=== PATIENT | female | born 1940 | race Caucasian/White ===

== ENCOUNTER 2018-08-11 10:01 | Inpatient (IN) ==
--- NOTE | 2018-08-11 10:14 | Emergency Department Note ---
Disposition Clinical Impression: Fracture of humerus, proximal, left, closed Qualifiers: Encounter type: initial encounter Fracture alignment: displaced Disposition: Admitted As Inpatient Forms: ED Satisfaction Letter General Adult HPI - General Chief complaint: ED Extremity Injury, Upper Stated complaint: FAll/left shoulder pain Time Seen by Provider: 08/11/18 10:09 Source: patient, family Limitations: no limitations - History of Present Illness Pain Scale: 10 - Related Data Home Medications Medication Instructions Recorded Confirmed ALPRAZolam [Xanax 0.5 MG Tablet] 0.5 mg PO BID PRN 03/18/17 03/18/17 Cholecalciferol (Vitamin D3) 2,000 unit PO DAILY 03/18/17 03/18/17 [Vitamin D] Ferrous Gluconate 324 mg PO DAILY 03/18/17 03/18/17 Megestrol Acetate [Megace] 40 mg PO DAILY 03/18/17 03/18/17 Pantoprazole Sodium [Protonix] 40 mg PO DAILY 03/18/17 03/18/17 Pentosan Polysulfate Sodium 100 mg PO TID 03/18/17 03/18/17 [Elmiron] Potassium Chloride [Klor-Con 10] 10 meq PO DAILY 03/18/17 03/18/17 amLODIPine [Norvasc] 5 mg PO DAILY 03/18/17 03/18/17 Previous Rx's Medication Instructions Recorded Omeprazole 20 mg PO DAILY 14 Days #14 05/08/18 tab.rap. Allergies Allergy/AdvReac Type Severity Reaction Status Date / Time Sulfa (Sulfonamide Allergy Rash Verified 08/11/18 10:07 Antibiotics) Past Medical History - Past Medical History Medical history: Reports: GERD, hypertension Surgical history: Reports: breast surgery, hysterectomy Psychiatric history: Reports: anxiety - Social History Smoking Status: Never smoker Smokeless Tobacco Status: No Alcohol use: Reports: none Drug use: Reports: none Physical Exam - General Limitations: no limitations General appearance: alert, in no apparent distress Course Vital Signs Temperature 98.4 F 08/11/18 10:02 Pulse Rate 94 08/11/18 10:02 Respiratory Rate 16 08/11/18 10:02 Blood Pressure 122/68 08/11/18 10:02 O2 Sat by Pulse Oximetry 100 08/11/18 10:02 Temperature 98.4 F 08/11/18 10:02 Pulse Rate 94 08/11/18 10:02 Respiratory Rate 16 08/11/18 10:02 Blood Pressure 122/68 08/11/18 10:02 O2 Sat by Pulse Oximetry 100 08/11/18 10:02 Oxygen Delivery Oxygen Delivery Room Air Medical Decision Making - MDM Narrative Medical decision making narrative: I consulted with Dr. Bronson with orthopedic surgery. He would like the patient admitted to the hospitalist. Patient does have some inferior subluxation of the proximal humerus due to this fall and fracture. He feels this is a surgical condition. Family and patient were updated. We will admit to hospitalist. - Medical Records Medical records reviewed: Yes I reviewed the patient's medical records. - Lab Data Lab results reviewed: Yes I reviewed the patient's lab results. - Radiology Data Radiology results reviewed: Yes I reviewed the patient's radiology results. Attestation Statement - Attestation Attestation: I examined this patient and my medical decision-making was reviewed with the Resident Physician. I agree with the documented findings, disposition and treatment plan as described except to the extent set forth below. 77-year-old female presents to the emergency room for a fall. Patient fell 2 days ago into the refrigerator freezer injuring her left shoulder. She is complaining of pain isolated to the left shoulder. Decreased range of motion secondary to pain. No other injuries. No head or neck injuries. No LOC. We will do a plain film of the left shoulder.
--- NOTE | 2018-08-11 10:17 | Emergency Department Note ---
Disposition Clinical Impression: Fracture of humerus, proximal, left, closed Qualifiers: Encounter type: initial encounter Fracture morphology: other fracture Fracture alignment: displaced Qualified Code(s): S42.292A - Other displaced fracture of upper end of left humerus, initial encounter for closed fracture Disposition: Admitted As Inpatient Condition: Fair Time of Disposition: 11:56 General Adult HPI - General Chief complaint: ED Extremity Injury, Upper Stated complaint: FAll/left shoulder pain Time Seen by Provider: 08/11/18 10:09 Source: patient, family Limitations: no limitations Nursing Notes Reviewed: Yes Vital Signs Reviewed: Yes - History of Present Illness HPI Narrative: 77 yo female presents from home with daughter bedside for evaluation of left shoulder pain. Patient fell 2 days ago. She describes opening the door to her refrigerator in her feet slipping from beneath her. She hit the left shoulder on the frame of the refrigerator door. She did not hit her head, did not lose consciousness. She has no other injuries or concerns. She takes ibuprofen at home for pain control in her symptoms are not improving. PMH: Hypertension, hyperlipidemia, IBS, Anticoagulant: None Antiplatelet: None ROS: Positive: As above Negative: Headache, change in vision, neck pain, confusion, back pain, other extremity injury, chest pain, shortness of breath, cough, fever, chills, nausea, vomiting, change in bowel or bladder habits. Pain Scale: 10 - Related Data Home Medications Medication Instructions Recorded Confirmed ALPRAZolam [Xanax 0.5 MG Tablet] 0.5 mg PO HS 03/18/17 08/11/18 Cholecalciferol (Vitamin D3) 2,000 unit PO DAILY 03/18/17 08/11/18 [Vitamin D] Ferrous Gluconate 324 mg PO DAILY 03/18/17 08/11/18 Pentosan Polysulfate Sodium 100 mg PO TID 03/18/17 08/11/18 [Elmiron] Potassium Chloride [Klor-Con 10] 10 meq PO DAILY 03/18/17 08/11/18 Amlodipine Besylate 10 mg PO DAILY 08/11/18 08/11/18 Losartan Potassium 50 mg PO DAILY PRN 08/11/18 08/11/18 Metoprolol Succinate [Toprol Xl] 50 mg PO BID 08/11/18 08/11/18 raNITIdine HCl [Zantac] 150 mg PO DAILY 08/11/18 08/11/18 Allergies Allergy/AdvReac Type Severity Reaction Status Date / Time Sulfa (Sulfonamide Allergy Rash Verified 08/11/18 10:07 Antibiotics) All systems ED: reviewed and negative except as stated. Review of Systems: As Per HPI Past Medical History - Past Medical History Medical history: Reports: GERD, hypertension Surgical history: Reports: breast surgery, hysterectomy Psychiatric history: Reports: anxiety - Social History Smoking Status: Never smoker Smokeless Tobacco Status: No Alcohol use: Reports: none Drug use: Reports: none Physical Exam Vital Signs Reviewed General: Patient is alert, oriented, and in no acute distress. She appears frail otherwise age appropriate. Head: atraumatic, normocephalic Eye: normal appearance, no scleral icterus, no conjunctival injection ENT: mucous membranes moist, normal external ear exam Neck: normal inspection, trachea midline, full ROM Chest: normal inspection, symmetric chest rise Respiratory: Good respiratory effort. Bilateral breath sounds are clear without wheezing, crackles, or rhonchi. Cardiovascular: Regular rate and rhythm. No clicks, rubs, gallops, or murmors. Normal heart sounds. Bilateral radial pulses 2/4 and equal. Abdomen: Bowel sounds present normoactive. Abdomen is soft, nondistended, and nontender. No guarding or rebound. No organomegaly noted. Musculoskeletal: Spontaneously moving all extremities. Pain to active and passive left shoulder abduction with pain palpation over left supraspinatus. Skin: warm, dry, intact. Neuro: GCS 15. No focal neurologic deficits observed. Psych: Patient's affect is appropriate for situation. - General Limitations: no limitations General appearance: alert, in no apparent distress Course Course Narrative: EKG dated 08/11/20 1011:29 interpreted as sinus rhythm with a rate of 69. NC 145, QS A3, QTc 412. LVH. Nonspecific ST-T changes. Compared to previous dated 05/08/2010 showing no acute ischemic changes in comparison. Concern for proximal left humerus fracture which is comminuted and displaced. Discussed this with on-call orthopedics, Dr. Arrieta. He agrees is a surgical problem and will be seeing the patient as consult with admission to the hospitalist. Discussed the above with the admitting hospitalist. Preop labs have not returned. Patient's been placed in sling. She is otherwise comfortable. Shoulder X-Ray 08/11/18 10:12 IMPRESSION: Comminuted and mildly displaced proximal left humerus fracture. D/ / 08/11/2018 10:54:39 Jim Ba MD / [facility] Interpreting Provider: Jim Ba MD Vital Signs Temperature 98.4 F 08/11/18 10:02 Pulse Rate 94 08/11/18 10:02 Respiratory Rate 16 08/11/18 10:02 Blood Pressure 122/68 08/11/18 10:02 O2 Sat by Pulse Oximetry 100 08/11/18 10:02 Temperature 98.4 F 08/11/18 10:02 Pulse Rate 94 08/11/18 10:02 Respiratory Rate 16 08/11/18 10:02 Blood Pressure 122/68 08/11/18 10:02 O2 Sat by Pulse Oximetry 100 08/11/18 10:02 Oxygen Delivery Oxygen Delivery Room Air Medical Decision Making - Lab Data Result diagrams: 08/11/18 11:19 08/11/18 11:19 Lab Results 08/11/18 08/11/18 08/11/18 Range/Units 11:19 11:19 11:19 WBC 7.7 (4.3-11.1) K/mcL RBC 3.16 L (3.82-4.97) M/mcL Hgb 9.5 L (11.5-15.4) g/dL Hct 29.3 L (35.3-44.9) % MCV 92.7 (83.0-100.0) fL MCH 30.1 (28.0-33.3) pg MCHC 32.4 (31.6-35.5) g/dL RDW 14.6 H (11.5-14.5) % Plt Count 183 (140-400) K/mcL MPV 9.8 (9.4-12.4) fL Immature Gran % 0.4 (0-4) % Seg Neutrophils % 76.7 % Lymphocytes % 10.9 % Monocytes % 11.4 % Eosinophils % 0.3 % Basophils % 0.3 % Neutrophils # 5.9 (1.6-8.9) K/mcL Lymphocytes # 0.8 (0.6-4.6) K/mcL Monocytes # 0.9 (0.0-1.3) K/mcL Eosinophils # 0.0 (0.0-0.6) K/mcL Basophils # 0.0 (0.0-0.2) K/mcL PT 12.9 H (9.4-12.1) Seconds INR 1.1 APTT 29.1 (26.0-36.0) Seconds Sodium 140 (136-145) mEq/L Potassium 3.8 (3.5-5.1) mEq/L Chloride 106 (98-107) mEq/L Carbon Dioxide 27 (23-29) mEq/L BUN 22 (8-23) mg/dL Creatinine 1.02 (0.60-1.20) mg/dL Est GFR ( Amer) > 60 (> 60) Est GFR (Non-Af Amer) 52 L (> 60) BUN/Creatinine Ratio 22 (6-26) Glucose 105 (70-105) mg/dL Calculated Osmolality 294 (280-300) Calcium 10.5 H (8.6-10.3) mg/dL
--- NOTE | 2018-08-11 11:21 | Orthopedic Consult Note ---
Date of Encounter: 08/11/18 Time of Encounter: 13:00 Assessment and Plan (1) Fracture of humerus, proximal, left, closed Current Visit: Yes Status: Acute Plan for OR 08/12 with NPO after midnight. Plan: I reviewed xrays with the patient. We discussed conservative and surgical management. Our recommendations would be to proceed with a Left Reverse TSR to maximize recovery and independence using left arm group home. Patient agreeable to this plan. Consent reviewed, signed by patient. All questions were addressed. Plan for surgery 08/12 with . I have consent in surgery. CHG bath tonight and in AM, NPO after midnight. foot pumps needed Pain control labs ordered, pre-op work up. Qualifiers: Encounter type: initial encounter Fracture morphology: other fracture Fracture alignment: displaced Qualified Code(s): S42.292A - Other displaced fracture of upper end of left humerus, initial encounter for closed fracture History of Present Illness Chief complaint: Fall, left shoulder pain HPI: Ms. Brady is a 77 year old female, presented to ED for Left shoulder pain, status post a fall 2 days ago. She has lost function of her shoulder secondary to pain. She denies LOC, SOB, BALLARD, dizziness or chest pain. Fall is a mechanical fall, and she hit her shoulder on her refridgerator and fell to the floor. She admits to pain 10/10 to left shoulder with bruising and lack of mobility. Denies N/T, radiation of pain or neck pain. No hx of trauma, falls or shoulder problems. Exam: A&O x 3, with her daughter in law. Left shoulder: Ecchymosis to entire left arm, swelling noted to shoulder, no erythema or obvious abrasions Tenderness to anterior shoulder, skin warm to touch. ROm to hand and elbow intact. NV intact distally. Plan: I reviewed xrays with the patient. We discussed conservative and surgical management. Our recommendations would be to proceed with a Left Reverse TSR to maximize recovery and independence using left arm meterman. Patient agreeable to this plan. Consent reviewed, signed by patient. All questions were addressed. Plan for surgery 08/12 with . I have consent in surgery. CHG bath tonight and in AM, NPO after midnight. foot pumps needed Pain control labs ordered, pre-op work up. Past Med Surg Social Fam HX - Past Medical History Medical history: GERD, hypertension Additional medical history: chronic back pain Psychiatric history: anxiety - Past Surgical History Surgical History: breast surgery, hysterectomy Additional surgical history: breast bx, x2 repair vaginal prolapse, back surgery - Social History Smoking Status: Never smoker Smokeless Tobacco Status: No Alcohol use: none Drug use: none Medications and Allergies Cholecalciferol (Vitamin D3) [Vitamin D] 2,000 unit PO DAILY 03/18/17 [History] Pentosan Polysulfate Sodium [Elmiron] 100 mg PO TID 03/18/17 [History] Potassium Chloride [Klor-Con 10] 10 meq PO DAILY 03/18/17 [History] RX: ALPRAZolam [Xanax 0.5 MG Tablet] 0.5 mg PO HS 03/18/17 [History] RX: Ferrous Gluconate 324 mg PO DAILY 03/18/17 [History] Bacillus Coagulans [Digestive Advantage] 1 each PO DAILY 08/11/18 [History] Losartan Potassium 50 mg PO DAILY PRN 08/11/18 [History] Metoprolol Succinate [Toprol Xl] 50 mg PO BID 08/11/18 [History] RX: Amlodipine Besylate 10 mg PO DAILY 08/11/18 [History] raNITIdine HCl [Zantac] 150 mg PO DAILY 08/11/18 [History] Allergy/AdvReac Type Severity Reaction Status Date / Time Sulfa (Sulfonamide Allergy Rash Verified 08/11/18 10:07 Antibiotics) All Systems Reviewed: The remainder of the systems were reviewed and are negative Physical Exam - Constitutional Vitals: Temp Pulse Resp BP Pulse Ox 98.4 F 94 16 122/68 100 08/11/18 10:02 08/11/18 10:02 08/11/18 10:02 08/11/18 10:02 08/11/18 10:02 General appearance IM: A&O X 3, answers questions appropriately Results - Labs Result Diagrams: 08/11/18 11:19 08/11/18 11:19 Labs: All other labs normal. Consult Discharge Plan - Plan
[2018-08-11 11:32] LABS: Basophils % 0.3 %; Eosinophils % 0.3 %; Hematocrit 29.3 % (35.3-44.9); Hemoglobin 9.5 g/dL (11.5-15.4); Immature Granulocytes % 0.4 % (0-4); Lymphocytes # 0.8 K/mcL (0.6-4.6); Lymphocytes % 10.9 %; Mean Corpuscular HGB Conc 32.4 g/dL (31.6-35.5); Mean Corpuscular Hemoglobin 30.1 pg (28.0-33.3); Mean Corpuscular Volume 92.7 fL (83.0-100.0); Mean Platelet Volume 9.8 fL (9.4-12.4); Monocytes # 0.9 K/mcL (0.0-1.3); Monocytes % 11.4 %; Neutrophils # 5.9 K/mcL (1.6-8.9); Platelet Count 183 K/mcL (140-400); Red Blood Count 3.16 M/mcL (3.82-4.97); Red Cell Distribution Width 14.6 % (11.5-14.5); Segmented Neutrophils % 76.7 %
[2018-08-11 11:43] LABS: INR 1.1; Prothrombin Time 12.9 Seconds (9.4-12.1)
[2018-08-11 11:46] LABS: Activated Partial Thrombo Time 29.1 Seconds (26.0-36.0)
[2018-08-11 11:53] LABS: BUN/Creatinine Ratio 22 (6-26); Blood Urea Nitrogen 22 mg/dL (8-23); Calcium 10.5 mg/dL (8.6-10.3); Carbon Dioxide 27 mEq/L (23-29); Chloride 106 mEq/L (98-107); Glucose 105 mg/dL (70-105); Osmolality,Calculated 294 (280-300); Potassium 3.8 mEq/L (3.5-5.1); Sodium 140 mEq/L (136-145); eGFR For Non-African Americans 52 (> 60)
[2018-08-11] MEDS ORDERED: *HR* HYDROcodone/Acet 5/325 mg TABLET PO PRN (12:34)
[2018-08-11] MEDS ORDERED: Naloxone 0.4 MG/ML INJ IVP PRN (12:34)
--- NOTE | 2018-08-11 13:23 | Internal Med History&Physical ---
Date of Encounter: 08/11/18 Time of Encounter: 13:15 Internal Medicine - H&P: HPI Chief complaint: left shoulder fracture Admitted From: Home Plans for Post Hospital Care: Home History of present illness: Ms. Brady is a 77 year old female who has hypertension and a history of T12 compression fracture presenting emergency room for left shoulder pain. Patient stated that she fell 2 days ago and landed to the left shoulder. She developed shoulder pain after fall, 10 out of 10, sharp, constant, unable to use her shoul evens. But she refused continue due to holiday season. But over last 2 days she her pain did not improve, worsening with any movement. She denies loss of consciousness. In the emergency room x-ray shows Comminuted and mildly displaced proximal left humerus fracture. Orthopedic surgery was consulted and recommended surgery tomorrow. Vitas is stable lab was unremarkable. She had a kyphoplasty surgery 2 years ago tolerant well. Denies bleeding or clots. She has good functional capacity. Consider low risk for procedure Past Med Surg Social Fam HX - Past Medical History Medical history: GERD, hypertension Additional medical history: chronic back pain Psychiatric history: anxiety - Past Surgical History Surgical History: breast surgery, hysterectomy, orthopedic, other Additional surgical history: back sx x2 - Social History Smoking Status: Never smoker Smokeless Tobacco Status: No Alcohol use: none Drug use: none Internal Medicine - H&P: Meds Cholecalciferol (Vitamin D3) [Vitamin D] 2,000 unit PO DAILY 03/18/17 [History] Pentosan Polysulfate Sodium [Elmiron] 100 mg PO TID 03/18/17 [History] Potassium Chloride [Klor-Con 10] 10 meq PO DAILY 03/18/17 [History] RX: ALPRAZolam [Xanax 0.5 MG Tablet] 0.5 mg PO HS 03/18/17 [History] RX: Ferrous Gluconate 324 mg PO DAILY 03/18/17 [History] Bacillus Coagulans [Digestive Advantage] 1 each PO DAILY 08/11/18 [History] Losartan Potassium 50 mg PO DAILY PRN 08/11/18 [History] Metoprolol Succinate [Toprol Xl] 50 mg PO BID 08/11/18 [History] RX: Amlodipine Besylate 10 mg PO DAILY 08/11/18 [History] raNITIdine HCl [Zantac] 150 mg PO DAILY 08/11/18 [History] Allergy/AdvReac Type Severity Reaction Status Date / Time Sulfa (Sulfonamide Allergy Rash Verified 08/11/18 10:07 Antibiotics) All Systems PM: A 10-system review of systems was performed and is negative for pertinent findings except as documented above in the HPI. - Constitutional Vitals: Temp Pulse Resp BP Pulse Ox 98.3 F 73 16 159/72 99 08/11/18 12:46 08/11/18 12:46 08/11/18 12:46 08/11/18 12:46 08/11/18 12:46 General appearance: Present: A&O X 3, pleasant Exam: CONSTITUTIONAL: Patient appears as an age appropriate female well developed, in no acute distress. EYES Clear sclerae, bilateral pupils are equal, reactive to light and accommodation. Extraocular movements are intact RESPIRATORY: No accessory muscle use, bilateral clear to auscultation, no wheezing, no crackles/rales. CARDIOVASCULAR: Regular heart rate, normal S1 and S2, no murmurs GASTROINTESTINAL: bowel sounds present, soft, no tenderness. No hepatosplenome waqar. No bilateral CVA tenderness MUSCULOSKELETAL: Left shoulder has limited range of motion, no clubbing, no edema, no cyanosis. Bilateral peripheral pulses 2+ LYMPHATIC no lymphadenopathy in neck, groin and axilla bilaterally, no thyromegaly. NEUROLOGIC: CN II to XII are grossly intact, no focal neurological deficit. Deep tendon reflexes 2+ bilaterally. Normal light touch sensation to upper and lower extremity PSYCHIATRIC: Oriented x3, with good insight, mood is euthymic. No hallucinations or delusions. SKIN: Skin warm and dry, no rashes, no open wound. Internal Med - H&P Results - Labs CBC & Chem 7: 08/11/18 11:19 08/11/18 11:19 Labs: Short CBC 08/11/18 Range/Units 11:19 WBC 7.7 (4.3-11.1) K/mcL Hgb 9.5 L (11.5-15.4) g/dL Hct 29.3 L (35.3-44.9) % Plt Count 183 (140-400) K/mcL Neutrophils # 5.9 (1.6-8.9) K/mcL BMP 08/11/18 11:19 Sodium 140 Potassium 3.8 Chloride 106 Carbon Dioxide 27 BUN 22 Creatinine 1.02 Glucose 105 Calcium 10.5 H - Impressions ITS Impressions Shoulder X-Ray 08/11/18 10:12 IMPRESSION: Comminuted and mildly displaced proximal left humerus fracture. D/ / 08/11/2018 10:54:39 Jim Ba MD / [facility] Interpreting Provider: Jim Ba MD - Assessment and plan (1) Fracture of humerus, proximal, left, closed Current Visit: Yes Status: Acute Assessment and plan: Left shoulder fracture after mechanical fall. Orthopedic surgery was consulted and will have surgery intervention tomorrow Qualifiers: Encounter type: initial encounter Fracture morphology: other fracture Fracture alignment: displaced Qualified Code(s): S42.292A - Other displaced fracture of upper end of left humerus, initial encounter for closed fracture (2) Pre-op evaluation Current Visit: Yes Status: Acute Assessment and plan: Patient denies history of CAD CK D diabetes CHF history of stroke, she has good functional goals capacity able to climb 2 flights of stairs without any chest pain shortness of breath. Her RCRI score 0 patient is considered low cardiac risk for surgery, will check EKG UA (3) Hypertension Current Visit: Yes Status: Acute Assessment and plan: Continue metoprolol, amlodipine and losartan Qualifiers: Hypertension type: essential hypertension Qualified Code(s): I10 - Essential (primary) hypertension (4) GERD (gastroesophageal reflux disease) Current Visit: Yes Status: Chronic Assessment and plan: Continue ppi Qualifiers: Esophagitis presence: with esophagitis Qualified Code(s): K21.0 - Gastro- esophageal reflux disease with esophagitis (5) DVT prophylaxis Current Visit: Yes Status: Acute Assessment and plan: We will place SCDs before surgery - Time Spent With Patient Total time spent is greater than 50% in coordination of care (as documented) at patient's floor/unit and/or counseling patient: Greater than 35 minutes
[2018-08-11] MEDS: Pentosan Polysulfate Sodium [Elmiron] 100 MG) PO SCH ×2 (15:40→20:21)
[2018-08-11] MEDS: Acetaminophen 325 MG TABLET PO PRN ×2 (15:45→22:18)
--- NOTE | 2018-08-11 16:02 | Electrocardiograph Report ---
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
--- NOTE | 2018-08-11 16:24 | Anesthesia Evaluation PreOp ---
<Stephanie Ayers - Last Filed: 08/11/18 16:19> Date of Encounter: 08/11/18 Time of Encounter: 16:19 - Past History Planned Operation: L total shoulder Cardiac History: HTN Pulmonary History: Denies Any Significant HX TALENT REP History: Other (chronic back paint12 compression fx) Other Medical History: GERD Anesthesia History: No Prior Anesthetic Complications, Past Anesthesia (Hysterectomy, back sx) Alcohol Use: none Drug use: none Medications and Allergies ALPRAZolam [Xanax 0.5 MG Tablet] 0.5 mg PO HS 03/18/17 [History] Cholecalciferol (Vitamin D3) [Vitamin D] 2,000 unit PO DAILY 03/18/17 [History] Ferrous Gluconate 324 mg PO DAILY 03/18/17 [History] Pentosan Polysulfate Sodium [Elmiron] 100 mg PO TID 03/18/17 [History] Potassium Chloride [Klor-Con 10] 10 meq PO DAILY 03/18/17 [History] Amlodipine Besylate 10 mg PO DAILY 08/11/18 [History] Bacillus Coagulans [Digestive Advantage] 1 each PO DAILY 08/11/18 [History] Losartan Potassium 50 mg PO DAILY PRN 08/11/18 [History] Metoprolol Succinate [Toprol Xl] 50 mg PO BID 08/11/18 [History] raNITIdine HCl [Zantac] 150 mg PO DAILY 08/11/18 [History] Allergy/AdvReac Type Severity Reaction Status Date / Time Sulfa (Sulfonamide Allergy Rash Verified 08/11/18 10:07 Antibiotics) - Meds/Allergy Pre-op Review Medications Reviewed: Yes Allergies Reviewed: Yes Beta Blockers on Current Med List: Yes Anesthesia Results - Labs 08/11/18 11:19 08/11/18 11:19 - Imaging EKG: report reviewed (Sinus rhythm Left atrial enlargement Left ventricular hypertrophy Anterior Q waves, possibly due to LVH Electronically Signed On 08-11-2018 16:00:27 EST by Carmel Navas) Anesthesia Exam Vital Signs/O2 Sat, Most Current Temp Pulse Resp BP Pulse Ox 98.3 F 73 16 159/72 99 08/11/18 12:46 08/11/18 12:46 08/11/18 12:46 08/11/18 12:46 08/11/18 12:46 Height: 1.57 Weight: 42kg NPO (# of Hours): >8 Pain Scale: 0 Pain Scale Used: Numeric (1 - 10) - HEENT Pupil (Motor): Pupils equal, EOMI Mallampati: III Teeth: Normal Oral Opening: Greater than 3 - TALENT REP LOC: Oriented TALENT REP Motor: Normal RUE, Normal LUE, Normal RLE, Normal LLE, Normal Face TALENT REP Sensory: Normal: RUE, LUE, RLE, LLE, Face - Cardiac Rhythm: Regular - Pulmonary Breath Sounds: bilateral Clear Respiratory Effort: Symmetrical Anesthesia Assess/Plan ASA Score: 3 Level of consciousness: Cooperative Anesthetic Plan: General, Regional Nerve Block (L brachial plexus) Monitoring Plan: Standard Monitors Recovery Plan: PACU <Modesto Oseguera - Last Filed: 08/11/18 19:17> Date of Encounter: 08/11/18 - Past History Anesthesia History: Past Anesthesia, Problems (Post op N/V) Anesthesia Results - Labs 08/11/18 11:19 08/11/18 11:19 Anesthesia Exam - HEENT Pupil (Motor): Pupils equal, EOMI Mallampati: III Teeth: Normal Oral Opening: Less than or equal to 3 - TALENT REP LOC: Oriented TALENT REP Motor: Normal RUE, Normal LUE, Normal RLE, Normal LLE, Normal Face TALENT REP Sensory: Normal: RUE, LUE, RLE, LLE, Face - Cardiac Rhythm: Regular JVD: No Carotid Bruit: No - Pulmonary Breath Sounds: bilateral Clear Respiratory Effort: Symmetrical Anesthesia Assess/Plan ASA Score: 3 Level of consciousness: Cooperative Anesthetic Plan: General, Regional Nerve Block Regional Nerve Block Plan: Supraclavicular Autologous Blood: No Monitoring Plan: Standard Monitors Recovery Plan: PACU (Discussed GA, Brachaial Plexus Block, agrees to proceed)
[2018-08-11] MEDS: Metoprolol XL (24 HR) Succ 50 MG TAB.ER.24H PO SCH (20:21)
[2018-08-11] MEDS ORDERED: ALPRAZolam 0.5 MG TABLET PO SCH (21:00)
[2018-08-12 05:16] LABS: Basophils # 0.1 K/mcL (0.0-0.2); Basophils % 0.7 %; Eosinophils # 0.1 K/mcL (0.0-0.6); Eosinophils % 1.8 %; Hematocrit 32.3 % (35.3-44.9); Hemoglobin 10.2 g/dL (11.5-15.4); Immature Granulocytes % 0.4 % (0-4); Lymphocytes # 1.5 K/mcL (0.6-4.6); Lymphocytes % 20.1 %; Mean Corpuscular HGB Conc 31.6 g/dL (31.6-35.5); Mean Corpuscular Hemoglobin 29.9 pg (28.0-33.3); Mean Corpuscular Volume 94.7 fL (83.0-100.0); Mean Platelet Volume 9.8 fL (9.4-12.4); Monocytes # 0.9 K/mcL (0.0-1.3); Monocytes % 12.5 %; Neutrophils # 4.6 K/mcL (1.6-8.9); Platelet Count 201 K/mcL (140-400); Red Blood Count 3.41 M/mcL (3.82-4.97); Red Cell Distribution Width 14.6 % (11.5-14.5); Segmented Neutrophils % 64.5 %
[2018-08-12 05:27] LABS: BUN/Creatinine Ratio 24 (6-26); Blood Urea Nitrogen 21 mg/dL (8-23); Calcium 10.3 mg/dL (8.6-10.3); Carbon Dioxide 24 mEq/L (23-29); Chloride 109 mEq/L (98-107); Glucose 102 mg/dL (70-105); Osmolality,Calculated 297 (280-300); Sodium 142 mEq/L (136-145); eGFR For Non-African Americans > 60 (> 60)
--- NOTE | 2018-08-12 06:50 | Orthopedics Progress Note ---
Date of Encounter: 08/12/18 Time of Encounter: 06:49 Subjective Interval history: Patient seen this morning x-rays reviewed with the family discussed different treatment options patient significant pain recommendations reverse total shoulder replacement left We reviewed the risks and benefits as well as recovery. All questions were answered. The patient agreed to this treatment plan and acknowledged an understanding of the treatment plan as described. Objective Vital signs: Vital Signs Temp Pulse Resp BP Pulse Ox 08/12/18 04:58 97.6 F 63 16 166/75 98 08/11/18 23:29 98.9 F 70 16 129/69 96 08/11/18 21:12 98.6 F 68 18 114/67 96 08/11/18 12:46 98.3 F 73 16 159/72 99 08/11/18 11:59 66 18 139/56 08/11/18 10:02 98.4 F 94 16 122/68 100 Intake and Output 08/11/18 08/11/18 08/12/18 15:59 23:59 07:59 Intake Total 240 / 240 240 / 240 0 / 0 Output Total 50 / 50 0 / 0 Balance 240 / 240 190 / 190 0 / 0 Intake: Oral 240 / 240 240 / 240 0 / 0 Output: Urine 50 / 50 0 / 0 Other: Meal Breakfast Dinner Percent of Meal Consumed 50% 50% # Voids 3 1 1 Weight 42.638 kg 42.69 kg Patient Weight 08/12/18 23:59 Weight 42.69 kg - Labs CBC & BMP: 08/12/18 04:43 08/12/18 04:43 Labs: Abnormal lab results RBC 3.41 M/mcL (3.82-4.97) L 08/12/18 04:43 Hgb 10.2 g/dL (11.5-15.4) L 08/12/18 04:43 Hct 32.3 % (35.3-44.9) L 08/12/18 04:43 RDW 14.6 % (11.5-14.5) H 08/12/18 04:43 PT 12.9 Seconds (9.4-12.1) H 08/11/18 11:19 Chloride 109 mEq/L (98-107) H 08/12/18 04:43 Consult Discharge Plan - Plan Referrals: Liu Monreal MD [Primary Care Provider] -
[2018-08-12] MEDS ORDERED: Famotidine 20 MG TABLET PO SCH (07:30)
[2018-08-12] MEDS: Pentosan Polysulfate Sodium [Elmiron] 100 MG) PO SCH (07:43)
[2018-08-12 08:17] LABS: Bilirubin,Urine Negative (Negative); Blood,Urine Negative (Negative); Color,Urine Yellow (Yellow); Glucose,Urine (UA) Normal (Normal); Ketones,Urine Negative (Negative); Leukocyte Esterase,Urine Large (Negative); Nitrite,Urine Negative (Negative); Protein,Urine Negative (Neg-Trace); Urobilinogen,Urine Normal (Normal)
[2018-08-12 08:20] LABS: Bacteria,Urine Many per hpf (None-Few); Hyaline Casts,Urine None Seen per lpf (None-Few); RBC,Urine 0-3 per hpf (0-3); Squamous Epithelial Cell,Urine Moderate per lpf (None-Few); WBC,Urine 30-50 per hpf (0-3)
[2018-08-12 08:21] LABS: Clarity,Urine Slightly Hazy (Clear)
[2018-08-12] MEDS: Metoprolol XL (24 HR) Succ 50 MG TAB.ER.24H PO SCH ×2 (08:50→21:22)
[2018-08-12] MEDS ORDERED: Cholecalciferol (D-3) 1,000 UNIT TABLET PO SCH (09:00)
[2018-08-12] MEDS ORDERED: amLODIPine 5 MG TABLET PO SCH (09:00)
[2018-08-12] MEDS ORDERED: Ketorolac 15 MG/ML VIAL IVP ONE (09:03)
[2018-08-12] MEDS ORDERED: Ondansetron 4 MG/2 ML VIAL IVP PRN ×2 (09:10→15:41)
--- NOTE | 2018-08-12 11:14 | Event Note ---
Date of Encounter: 08/12/18
[2018-08-12] MEDS ORDERED: *HR* Propofol 200 MG/20 ML VIAL IVP ONE ×2 (12:44→12:56)
[2018-08-12] MEDS ORDERED: Lidocaine -MPF 2% 2 ML VIAL ONE (12:44)
[2018-08-12] MEDS ORDERED: *HR* Rocuronium Bromide 50 MG/5 ML VIAL ONE (12:44)
[2018-08-12] MEDS ORDERED: Dexamethasone 4 MG/ML VIAL ONE (12:44)
[2018-08-12] MEDS ORDERED: Ondansetron 4 MG/2 ML VIAL ONE (12:44)
[2018-08-12] MEDS ORDERED: *HR* FentaNYL (PF) 100 MCG/2 ML VIAL ONE (12:44)
[2018-08-12] MEDS ORDERED: *HR* Succinylcholine 200 MG/10 ML VIAL IVP ONE (12:44)
[2018-08-12] MEDS ORDERED: *HR* Midazolam HCl 2 MG/2 ML VIAL ONE (12:44)
--- NOTE | 2018-08-12 12:52 | Internal Med Progress Note ---
Hospitalist Progress Note - Encounter Date of Encounter: 08/12/18 Time of Encounter: 09:30 - Subjective Interval History: Patient continues to have right shoulder pain at site of fracture. Not much improvement with Tylenol. Patient reports that she gets nauseated with anesthesia and would prefer not using strong narcotic medications. Offered intravenous Tylenol/Toradol. Willing to try this. Scheduled for surgery later today. No chest pain or shortness of breath. No nausea or vomiting at this time. - Exam Vitals: Temp Pulse Resp BP Pulse Ox 98.2 F 66 18 160/74 98 08/12/18 10:04 08/12/18 12:35 08/12/18 12:35 08/12/18 12:35 08/12/18 12:35 Exam: General: Patient is alert, moderate distress, oriented x 3 ENT: Mucous membranes moist Respiratory: Good respiratory effort. Normal breath sounds. No wheezing or crackles. Cardiovascular: Regular rate and rhythm. s1 and s2 normal No clicks, rubs, gallops, or murmurs. No pedal edema Abdomen: Abdomen is soft, nontender. Bowel sounds are present Musculoskeletal: Tenderness in left shoulder Skin: warm, dry, intact. Neuro: Alert oriented x 3 normal cranial nerves, no focal deficits - Assessment and Plan (1) Fracture of humerus, proximal, left, closed Current Visit: Yes Status: Acute Assessment and Plan: Orthopedics evaluated patient and recommended to reverse total shoulder replacement. Scheduled for later today. Low to intermediate risk for cardiac complications from surgery. Will place patient on IV Tylenol to help with her pain. (2) Hypertension Current Visit: Yes Status: Chronic Assessment and Plan: Blood pressure is currently elevated. Likely due to pain. Continue metoprolol, losartan and amlodipine. We will continue to monitor blood pressure and adjust antihypertensive regimen accordingly. (3) GERD (gastroesophageal reflux disease) Current Visit: Yes Status: Chronic Assessment and Plan: Continue Pepcid (4) DVT prophylaxis Current Visit: Yes Status: Acute Assessment and Plan: Will place patient on subcutaneous Lovenox post procedure - Time Spent with Patient Total time spent is greater than 50% in coordination of care (as documented) at patient's floor/unit and/or counseling patient: Internal Medicine: Result - Labs CBC & Chem 7: 08/12/18 04:43 08/12/18 04:43 Labs: Short CBC 08/12/18 Range/Units 04:43 WBC 7.2 (4.3-11.1) K/mcL Hgb 10.2 L (11.5-15.4) g/dL Hct 32.3 L (35.3-44.9) % Plt Count 201 (140-400) K/mcL Neutrophils # 4.6 (1.6-8.9) K/mcL BMP 08/12/18 04:43 Sodium 142 Potassium 4.0 Chloride 109 H Carbon Dioxide 24 BUN 21 Creatinine 0.87 Glucose 102 Calcium 10.3 Urine 08/12/18 Range/Units 07:15 Urine Color Yellow (Yellow) Urine Clarity Slightly Hazy (Clear) Urine pH 7.0 (5.0-8.0) pH Units Ur Specific [place] 1.020 (1.010-1.025) Urine Protein Negative (Neg-Trace) mg/dL Urine Glucose (UA) Normal (Normal) mg/dL - ABG Interpretation ABG results: PT/INR, D-dimer PT 12.9 Seconds (9.4-12.1) H 08/11/18 11:19 - Impressions Impressions Shoulder X-Ray 08/11/18 10:12 IMPRESSION: Comminuted and mildly displaced proximal left humerus fracture. D/ / 08/11/2018 10:54:39 Jim Ba MD / [email or web address] Interpreting Provider: Jim Ba MD Consult Discharge Plan - Plan Referrals: Liu Monreal MD [Primary Care Provider] - (1) Fracture of humerus, proximal, left, closed Qualifiers: Encounter type: initial encounter Fracture morphology: other fracture Fracture alignment: displaced Qualified Code(s): S42.292A - Other displaced fracture of upper end of left humerus, initial encounter for closed fracture (2) Hypertension Qualifiers: Hypertension type: essential hypertension Qualified Code(s): I10 - Essential (primary) hypertension (3) GERD (gastroesophageal reflux disease) Qualifiers: Esophagitis presence: esophagitis presence not specified Qualified Code(s): K21.9 - Gastro-esophageal reflux disease without esophagitis
[2018-08-12] MEDS ORDERED: ROPIVACAINE HCL/PF 0.5% 30 ML VIAL ONE (12:55)
[2018-08-12] MEDS ORDERED: Ethanol\\Acetic Acid\\Na Ace\\Ben 1,000 ML IRRIG.SOLN IR ONE (13:08)
--- NOTE | 2018-08-12 13:16 | Anesthesia Procedures ---
Date of Encounter: 08/12/18 Time of Encounter: 13:08 Procedures: Anesthesia - Nerve Block Procedure Date: 08/12/18 Time: 13:08 Allergies/Adv Reactions: sulfa Surgical Procedure: left rev TSA Checklist: Correct Patient Identifier, Correct procedure, History checked Correct side: Left Blood Thinner: No Monitor Applied: EKG, BP, Pulse Oximetry Supplemental Oxygen via Nasal Cannula (L/min): 8 (FM) Indication: Post Op Analgesia Pre-op Neuro Deficits: No Block Type: Supraclavicular Catheter placed: No Sterile Technique: Yes Ultrasound used: Yes Anatomy identified: Yes Visual spread of Local: Yes Neuro Stimulation: No Blood on Needle Aspiration: No Smooth Injection of Local: Yes Pain with Injection of Local: No Prep: Chlorhexadine Needle: 22 x 50 mm Stimuplex Local: Ropivacaine, Other (decadron 8mg) Volume (cc): 30 Number of Attempts: 1 Complications: None/effective block Vitals: Vital Signs/O2 Sat/Glucose, Most Recent Temp Pulse Resp BP Pulse Ox 98.2 F 60 16 141/66 100 08/12/18 10:04 08/12/18 13:09 08/12/18 13:09 08/12/18 13:09 08/12/18 13:09 Blood Glucose* 97 Comments: propofol 20mg
[2018-08-12] MEDS ORDERED: Tranexamic Acid 1,000 MG/10 ML VIAL ONE (13:24)
[2018-08-12] MEDS ORDERED: EPHEDrine 50 MG/ML VIAL ONE (13:37)
--- NOTE | 2018-08-12 14:25 | Orthopedic Operative Note ---
Date of procedure: 08/12/18 Pre-op diagnosis: Displaced left proximal humerus fracture Post-op diagnosis: same Procedure: Procedure: Reverse total shoulder replacment, left Estimated blood loss: 100 cc Hardware: Metal and polyethylene replacement Arthrex glenoid baseplate: 24, +4, 30 mm screw , 4 locking 5.5 screw, glenosphere: 42+4 , humeral stem: 11 , 3 constrained poly insert: 2 Arthrex cerclage fiber tapes Procedural Notes: Displaced proximal humerus fracture Operative procedure: The patient was brought to the operating room and placed on the operating room table. After general anesthesia was administered the operative shoulder was examined. Findings were noted. The patient was placed in the modified beachchair position. All pressure points were padded appropriately. And the head was stabilized in the neutral position. The operative extremity was prepped and draped in the sterile surgical fashion. The patient received IV antibiotics prior to skin incision. A standard deltopectoral approach was made to the operative shoulder. Incision was made to the skin and subcutaneous tissue,hemo stasis was obtained with Bovie cautery. Using careful blunt dissection the cephalic vein was identified and mobilized medially. The deltopectoral interval was developed and the clavipectoral fascia was incised. The lesser tuberosity was identified and tagged with 2 #2 fiber loops and 2 #2 FiberWire suture. The greater tuberosity was identified and tagged with 2 #5 FiberWire suture. And to cerclage fiber tapes The humeral head was removed. Anterior and posterior Bankart retractors were placed to expose the glenoid. The glenoid guide was seated and the centering hole was made. It was reamed with the appropriate reamer. The baseplate 24, +4, 30 mm screw was seated and secured with 4 locking 5.5 screw. The baseplate was irrigated and dried and the appropriate 42+4 sphere was seated and secured with the Garcia taper and central locking screw. The Garcia taper was tested and found to be secure the humerus was redislocated and prepared with the diaphyseal reamers, followed by a broaching process up to the appropriate size 11 in 20 degrees of retro-version. Trial reduction found the shoulder to be relocatable. Trial components were removed The real humeral component was impacted in place in 20 degrees of retroversion. Trial reduction found the shoulder to be relocatable and stable with the appropriate 3 constrained inserts. Trial component was removed and the real implants was seated and secured the shoulder was reduced. The shoulder had excellent motion and excellent stability and no evidence of dislocation. The greater tuberosity was reduced and repaired to the implant with 2 cerclage fiber tapes the lesser tuberosity was reduced and repaired to this construct with #2 fiberwire sutures. The deep tissue was irrigated with pulse irrigation. The deltopectoral interval was closed with a running #1 PDS suture, subcutaneous tissue was irrigated and closed with 0 PDS suture, the skin was closed with skin chio The patient was placed in a sterile dressing, abduction brace and extubated. The patient was then transferred to the recovery room in stable condition. Anesthesia: GETA Surgeon: Orville Bronson Was there an sourcing assistant present: No Estimated blood loss (cc): 100 Condition: stable Disposition: PACU
[2018-08-12] MEDS ORDERED: Ringers Solution, Lactated 1,000 ML ONE (15:03)
[2018-08-12 15:17] LABS: Hematocrit 28.8 % (35.3-44.9); Hemoglobin 9.4 g/dL (11.5-15.4)
[2018-08-12] MEDS ORDERED: Ringers Solution, Lactated 1,000 ML IVC SCH (15:41)
[2018-08-12] MEDS ORDERED: *HR* HYDROcodone/Acet 5/325 mg TABLET PO PRN (15:41)
[2018-08-12] MEDS ORDERED: Temazepam 15 MG CAPSULE PO PRN (15:41)
[2018-08-12] MEDS ORDERED: Sennosides 8.6 MG TABLET PO PRN (15:41)
[2018-08-12] MEDS ORDERED: Naloxone 0.4 MG/ML INJ IVP PRN ×2 (15:41)
[2018-08-12] MEDS ORDERED: MOM Conc 10 ML UD.LIQ PO PRN (15:41)
--- NOTE | 2018-08-12 16:12 | Anesthesia Evaluation Post Op ---
Date of Encounter: 08/12/18 Time of Encounter: 15:00 - Discharge PostOp Status: Transfer Patient to floor (Patient's vital signs have been reviewed. Patient is stable postoperatively and has adequately recovered from anesthesia. Patient is determined to have stable airway patency and respiratory function including respiratory rate and oxygen saturation. Patient has a stable heart rate, blood pressure and adequate hydration. Patients mental status is acceptable. Patients temperature is appropriate. Pain and nausea are adequately controlled.)
[2018-08-12] MEDS ORDERED: ALPRAZolam 0.5 MG TABLET PO SCH (21:00)
[2018-08-12] MEDS: Patient Taking Own Medication 1 EACH PO SCH (21:24)
[2018-08-13] MEDS: Acetaminophen IV 1,000 MG/100 ML INFUS..BTL IVPB PRN ×2 (04:01→13:41)
[2018-08-13 05:59] LABS: Hematocrit 28.6 % (35.3-44.9); Hemoglobin 9.5 g/dL (11.5-15.4)
[2018-08-13] MEDS ORDERED: Famotidine 20 MG TABLET PO SCH (07:30)
[2018-08-13] MEDS: Metoprolol XL (24 HR) Succ 50 MG TAB.ER.24H PO SCH (08:23)
[2018-08-13] MEDS: Patient Taking Own Medication 1 EACH PO SCH (08:23)
[2018-08-13] MEDS ORDERED: Ketorolac 15 MG/ML VIAL IVP ONE (08:39)
[2018-08-13] MEDS ORDERED: Cholecalciferol (D-3) 1,000 UNIT TABLET PO SCH (09:00)
[2018-08-13] MEDS ORDERED: amLODIPine 5 MG TABLET PO SCH (09:00)
[2018-08-13] MEDS ORDERED: Cefdinir 300 MG CAPSULE PO SCH (09:00)
[2018-08-13] MEDS ORDERED: *HR* Enoxaparin 40 MG/0.4 ML SYRINGE SQ SCH (12:45)
--- NOTE | 2018-08-13 13:58 | Discharge Summary ---
- NOTES TO OUTPATIENT PROVIDER Notes to Outpatient Provider: Patient with history of essential hypertension and gastroesophageal reflux disease was hospitalized here after a fall resulting in left humerus fracture. She was evaluated by orthopedics and recommended reverse total shoulder replacement. She underwent this procedure yesterday and is doing well postoperatively. She has been evaluated by physical therapy and recommended outpatient PT. She will be discharged home today and will follow up with orthopedics after discharge for further management. Orders not resulted at time of discharge: Pending orders 08/12/18 07:15 Culture,Urine [RM] Stat 08/12/18 13:04 US anesthesia pain block [US] Routine 08/14/18 04:00 Hemoglobin and Hematocrit [HEME] AM 0400 Date of Encounter: 08/13/18 Time of Encounter: 09:00 - Discharge Diagnosis (1) Fracture of humerus, proximal, left, closed Priority: Primary Status: Acute Qualifiers: Encounter type: initial encounter Fracture morphology: other fracture Fracture alignment: displaced Qualified Code(s): S42.292A - Other displaced fracture of upper end of left humerus, initial encounter for closed fracture (2) Hypertension Priority: Secondary Status: Chronic Qualifiers: Hypertension type: essential hypertension Qualified Code(s): I10 - Essential (primary) hypertension (3) GERD (gastroesophageal reflux disease) Priority: Secondary Status: Chronic Qualifiers: Esophagitis presence: esophagitis presence not specified Qualified Code(s): K21.9 - Gastro-esophageal reflux disease without esophagitis (4) DVT prophylaxis Priority: Secondary Status: Acute Hospital course: Ms. Brady is a 77 year old female Patient with history of essential hypertension and gastroesophageal reflux disease was hospitalized here after a fall resulting in left humerus fracture. She was evaluated by orthopedics and recommended reverse total shoulder replacement. She underwent this procedure yesterday and is doing well postoperatively. She has been evaluated by physical therapy and recommended outpatient PT. She will be discharged home today and will follow up with orthopedics after discharge for further management. Discharge discussed with: patient, nurse - Time Spent with Patient Total time spent providing and/or coordinating discharge services: Greater than 30 minutes (32 min) - Discharge Medications Prescriptions: Acetaminophen w/Cod 300-30 mg [Tylenol w/Codeine #3] 1 each PO Q8HR PRN 7 Days #20 tablet PRN Reason: Moderate Pain RX: Cefdinir [Omnicef] 300 mg PO BID #12 capsule RX: Tramadol HCl [Ultram] 50 mg PO Q6H PRN 5 Days #20 tab PRN Reason: Severe Pain Home Medications: RX: ALPRAZolam [Xanax 0.5 MG Tablet] 0.5 mg PO HS 03/18/17 [History] RX: Cholecalciferol (Vitamin D3) [Vitamin D3] 2,000 unit PO DAILY 03/18/17 [History] RX: Ferrous Gluconate 324 mg PO DAILY 03/18/17 [History] RX: Pentosan Polysulfate Sodium [Elmiron] 100 mg PO TID 03/18/17 [History] RX: Potassium Chloride [Klor-Con 10] 10 meq PO DAILY 03/18/17 [History] RX: Amlodipine Besylate 10 mg PO DAILY 08/11/18 [History] RX: Bacillus Coagulans [Digestive Advantage] 1 each PO DAILY 08/11/18 [History] RX: Losartan Potassium 50 mg PO DAILY PRN 08/11/18 [History] RX: Metoprolol Succinate [Toprol Xl] 50 mg PO BID 08/11/18 [History] RX: raNITIdine HCl [Zantac] 150 mg PO DAILY 08/11/18 [History] Acetaminophen w/Cod 300-30 mg [Tylenol w/Codeine #3] 1 each PO Q8HR PRN 7 Days #20 tablet 08/13/18 [Rx] RX: Cefdinir [Omnicef] 300 mg PO BID #12 capsule 08/13/18 [Rx] RX: Tramadol HCl [Ultram] 50 mg PO Q6H PRN 5 Days #20 tab 08/13/18 [Rx] Allergies/Adverse Reactions: Allergy/AdvReac Type Severity Reaction Status Date / Time Sulfa (Sulfonamide Allergy Rash Verified 08/11/18 10:07 Antibiotics) Date of admission: 08/11/18 11:43 Primary care physician: Liu Monreal MD Consults: 08/11/18 12:54 Consult to Pastoral Services [CONS] Routine Comment: Consult to [place] [CONS] Routine Reason for SW Consult: rehab on d/c 08/12/18 15:41 Consult to Occupational Therapy [CONS] Routine Comment: post shoulder surgery Reason for Consult: post shoulder surgery Does patient have active BEDREST order?: No Is patient medically & hemodynamically stable?: Yes Consult to Physical Therapy [CONS] Routine Comment: post shoulder surgery Reason for Consult: post shoulder surgery Does patient have active BEDREST order?: No Is patient medically & hemodynamically stable?: Yes RT Post Op Consult [CONS] Routine Discharging clinician: Aubree Ross Anticipated date of discharge: 08/13/18 - Constitutional Vitals: Temp Pulse Resp BP Pulse Ox 98.7 F 83 16 136/84 96 08/13/18 10:11 08/13/18 10:11 08/13/18 10:11 08/13/18 10:11 08/13/18 10:11 General appearance: Present: A&O X 3, pleasant Exam: General: Patient is alert, no acute distress, oriented x 3 Respiratory: Good respiratory effort. Normal breath sounds. No wheezing or crackles. Cardiovascular: Regular rate and rhythm. s1 and s2 normal No clicks, rubs, gallops, or murmurs. No pedal edema Abdomen: Abdomen is soft, nontender. Bowel sounds are present Musculoskeletal: Tenderness in left shoulder joint - Patient Status Disposition: Home, Self-Care Condition: Fair Functional capacity at discharge: uses cane/walker Overall status at discharge: patient is progressing back to baseline - Ambulatory Orders Ambulatory Orders: Consult to Occupational Therapy [CONS] Time Frame: 1 Day, Facility: [facility], Location: Rehab Services Consult to Physical Therapy [CONS] Time Frame: 1 Day, Facility: [facility], Location: Rehab Services - Discharge Instructions Instructions: Arm Fracture in Adults (DC) Follow Up With: Liu Monreal MD [Primary Care Provider] - (in 1-2 weeks) Orville Bronson MD [Partnered Physician] - (in 2 weeks) Additional Instructions: Discharge Instructions: Total Shoulder Please call [facility] ([phone]), your Primary Care Physician, or report to the Emergency Room if you have any of the following symptoms: Nausea, vomiting, fever greater that 101.5, swelling, chest pain, shortness of breath, increased pain/redness/drainage/odor for your incision site, numbness/tingling, or any other concerning symptoms. ACTIVITY: Always keep your arm in the sling. Do not raise your arm away from your body. Do not use your arm to help with getting in or out of bed. No weight bearing permitted. Only perform those exercises given to you by your therapist. Incentive Spirometer 10 times an hour. No shoulder motion and stay in sling for 4-6 weeks. MEDICATIONS: Upon discharge resume your home medications. Take all the medications as prescribed. Take a stool softener if taking narcotic pain medications. Stool softeners are only effective if you drink enough fluids. Drink 6-8 glass of water or fluids a day, unless this is not allowed for another health problem. Despite using stool softeners, if you haven't had a bowel movement in 3 days, please switch to a gentle laxative. Gentle laxatives are sold over the counter. You should have a bowel movement within 24 hours, if not call the office. You will be discharged from the hospital with a prescription for pain medication. You are encouraged to decrease the use of narcotic pain medication as tolerated. Should you require a refill, please call the office. [facility] prescribes narcotic pain medication for only 4-6 weeks after surgery. If you require pain medication beyond this time period, you may be referred to your Primary Care Physician or to the Pain Clinic for further evaluation. Plan ahead for refills on pain medication as many narcotics either need to be picked up at the office or mailed. It is best to call 48-72 hours in advance of needing a prescription refill so you don't run out of medication. To help control the post-operative pain, you may take NSAIDs (Aleve,Advil, Motrin, Ibuprofen, Naprosyn) or Tylenol as prescribed on the bottle in addition to the pain medication. WOUND CARE: Leave the dressing on for 7-10 days. You may change the dressing if it becomes saturated greater than 50%. Do not get the dressing wet at anytime. Wash your hands with antibacterial soap, rinse and dry prior to any wound care. If you have chio the visiting nurse or rehab facility can remove the stapes 10-14 days after surgery and place steri-strips across the wound. Leave the steri-strips in place until they fall off on their own. You may let water from the shower run on top of the steri-strips. If you do not have a visiting nurse or rehab facility, you will need to return to the office at 10-14 days for the chio to be removed. If you have itching or redness around the dressing call the office. FOLLOW-UP: Please follow up with your surgeon in the orthopedic clinic, as scheduled - Diet and Activity Activity: as per physical therapy Diet: advance to your usual diet, low fat, low cholesterol, low salt diet
[2018-08-13 18:18] VITALS: BP 144/84
== END 2018-08-13 16:12 | disposition home or self-care (01) | DRG 483 ==
LOC: 3NENU 10:01 → EMEROOARM 10:01 → OBSVTOIN 11:43 → SUATTDRO 11:43 → 3NENU 12:27
PROVIDERS: ADMIT Hospitalist; ATTEND Internal Medicine

== ENCOUNTER 2021-05-10 11:01 | Inpatient (IN) ==
[2021-05-10 14:10] LABS: Basophils % 0.1 %; Hematocrit 32.3 % (35.3-44.9); Hemoglobin 10.7 g/dL (11.5-15.4); Immature Granulocytes % 0.4 % (0-4); Lymphocytes # 0.9 K/mcL (0.6-4.6); Lymphocytes % 9.2 %; Mean Corpuscular HGB Conc 33.1 g/dL (31.6-35.5); Mean Corpuscular Hemoglobin 32.1 pg (28.0-33.3); Mean Platelet Volume 9.8 fL (9.4-12.4); Monocytes # 0.8 K/mcL (0.0-1.3); Monocytes % 8.7 %; Neutrophils # 7.9 K/mcL (1.6-8.9); Platelet Count 210 K/mcL (140-400); Red Blood Count 3.33 M/mcL (3.82-4.97); Red Cell Distribution Width 14.6 % (11.5-14.5); Segmented Neutrophils % 81.6 %; White Blood Count 9.7 K/mcL (4.3-11.1)
[2021-05-10 14:32] LABS: Calcium 10.7 mg/dL (8.6-10.3); Potassium 3.5 mEq/L (3.5-5.1)
[2021-05-10] MEDS ORDERED: *HR* HYDROmorphone (PF) 1 MG/ML SYRINGE IVP ONE (14:32)
[2021-05-10] MEDS ORDERED: 0.9 % Sodium Chloride 1,000 ML IVC ONE (14:48)
[2021-05-10] MEDS ORDERED: Naloxone 0.4 MG/ML INJ IVP PRN (17:13)
[2021-05-10] MEDS ORDERED: Ondansetron 4 MG/2 ML VIAL IVP PRN (17:13)
[2021-05-10] MEDS: 0.9 % Sodium Chloride w KCl 20 MEQ/1,000 ML MLS IVC SCH (19:09)
[2021-05-10] MEDS: Metoprolol XL (24 HR) Succ 50 MG TAB.ER.24H PO SCH (21:04)
[2021-05-10] MEDS: ALPRAZolam 0.5 MG TABLET PO SCH (21:58)
[2021-05-11] MEDS: Acetaminophen 325 MG TABLET PO PRN (02:04)
[2021-05-11 02:19] LABS: Bilirubin,Urine Negative (Negative); Blood,Urine Negative (Negative); Clarity,Urine Clear (Clear); Color,Urine Light-Yellow (Yellow); Glucose,Urine (UA) Normal (Normal); Hyaline Casts,Urine Moderate per lpf (None Seen); Ketones,Urine Negative (Negative); Leukocyte Esterase,Urine Trace (Negative); Mucus,Urine Few per lpf (None-Few); Nitrite,Urine Negative (Negative); Protein,Urine 50 mg/dL (Neg-Trace); Specific Gravity,Urine 1.024 (1.010-1.025); Squamous Epithelial Cell,Urine Few per hpf (None-Few); Urobilinogen,Urine Normal (Normal)
[2021-05-11 03:29] LABS: Adenovirus Not Detected (Not Detect); Coronavirus 229E Not Detected (Not Detect); Coronavirus HKU1 Not Detected (Not Detect); Coronavirus NL63 Not Detected (Not Detect); Coronavirus OC43 Not Detected (Not Detect); Human Metapneumovirus Not Detected (Not Detect); Human Rhinovirus/Enterovirus Not Detected (Not Detect); Influenza A Subtype 2009 H1 Not Detected (Not Detect); Influenza B Not Detected (Not Detect); Parainfluenza Virus 1 Not Detected (Not Detect); Parainfluenza Virus 2 Not Detected (Not Detect); Parainfluenza Virus 3 Not Detected (Not Detect); Parainfluenza Virus 4 Not Detected (Not Detect); SARS-CoV-2 Not Detected (Not Detect)
[2021-05-11 03:30] LABS: Bordetella Pertussis Not Detected (Not Detect); Chlamydophila pneumoniae Not Detected (Not Detect); Mycoplasma pneumoniae Not Detected (Not Detect); Respiratory Syncytial Virus Not Detected (Not Detect)
[2021-05-11 06:36] LABS: Basophils % 0.3 %; Eosinophils % 0.5 %; Immature Granulocytes % 0.3 % (0-4); Lymphocytes # 1.4 K/mcL (0.6-4.6); Lymphocytes % 21.7 %; Mean Corpuscular HGB Conc 33.1 g/dL (31.6-35.5); Mean Corpuscular Hemoglobin 32.6 pg (28.0-33.3); Mean Corpuscular Volume 98.5 fL (83.0-100.0); Mean Platelet Volume 9.9 fL (9.4-12.4); Monocytes # 0.8 K/mcL (0.0-1.3); Neutrophils # 4.1 K/mcL (1.6-8.9); Platelet Count 172 K/mcL (140-400); Red Blood Count 2.64 M/mcL (3.82-4.97); Red Cell Distribution Width 14.9 % (11.5-14.5); Segmented Neutrophils % 65.2 %; White Blood Count 6.4 K/mcL (4.3-11.1)
[2021-05-11 06:47] LABS: Hemoglobin 8.6 g/dL (11.5-15.4)
[2021-05-11 06:48] LABS: Alanine Aminotransferase 5 Units/L (7-52); Albumin 3.4 g/dL (3.5-5.7); Albumin/Globulin Ratio 1.6 (1.1-2.2); Alkaline Phosphatase 41 Units/L (34-104); Aspartate Amino Transferase 14 Units/L (13-39); BUN/Creatinine Ratio 34 (6-26); Bilirubin,Total 0.5 mg/dL (0.3-1.0); Blood Urea Nitrogen 33 mg/dL (8-23); Calcium 9.7 mg/dL (8.6-10.3); Carbon Dioxide 21 mEq/L (23-29); Chloride 114 mEq/L (98-107); Globulin 2.1 g/dL (2.4-3.5); Glucose 97 mg/dL (70-105); Osmolality,Calculated 299 (280-300); Potassium 3.3 mEq/L (3.5-5.1); Sodium 141 mEq/L (136-145); Total Protein 5.5 g/dL (6.4-8.9); eGFR For African Americans > 60 (> 60); eGFR For Non-African Americans 55 (> 60)
[2021-05-11] MEDS: 0.9 % Sodium Chloride w KCl 20 MEQ/1,000 ML MLS IVC SCH (09:59)
[2021-05-11] MEDS: Cholecalciferol (D-3) 1,000 UNIT (25MCG) TABLET PO SCH (10:04)
[2021-05-11] MEDS: Lactobacillus 1 EACH CAP.SPRINK PO SCH (10:04)
[2021-05-11] MEDS: Metoprolol XL (24 HR) Succ 50 MG TAB.ER.24H PO SCH ×2 (10:04→19:39)
[2021-05-11] MEDS: ALPRAZolam 0.5 MG TABLET PO SCH (19:39)
[2021-05-12] MEDS: Cholecalciferol (D-3) 1,000 UNIT (25MCG) TABLET PO SCH (10:12)
[2021-05-12] MEDS: Lactobacillus 1 EACH CAP.SPRINK PO SCH (10:13)
[2021-05-12] MEDS: Metoprolol XL (24 HR) Succ 50 MG TAB.ER.24H PO SCH ×2 (10:13→22:00)
[2021-05-12] MEDS: Acetaminophen 325 MG TABLET PO PRN (10:22)
[2021-05-12 14:29] LABS: BUN/Creatinine Ratio 27 (6-26); Blood Urea Nitrogen 21 mg/dL (8-23); Calcium 9.7 mg/dL (8.6-10.3); Carbon Dioxide 21 mEq/L (23-29); Chloride 113 mEq/L (98-107); Glucose 120 mg/dL (70-105); Magnesium 1.6 mg/dL (1.6-2.6); Osmolality,Calculated 290 (280-300); Potassium 3.9 mEq/L (3.5-5.1); Sodium 138 mEq/L (136-145); eGFR For African Americans > 60 (> 60); eGFR For Non-African Americans > 60 (> 60)
[2021-05-12] MEDS ORDERED: polyethylene glycoL 3350 17 GM POWD.PACK PO PRN (18:13)
[2021-05-12] MEDS: ALPRAZolam 0.5 MG TABLET PO SCH (22:00)
[2021-05-13] MEDS: *HR* Enoxaparin 30 MG/0.3 ML SYRINGE SQ SCH (05:21)
[2021-05-13] MEDS: Cholecalciferol (D-3) 1,000 UNIT (25MCG) TABLET PO SCH (10:16)
[2021-05-13] MEDS: Metoprolol XL (24 HR) Succ 50 MG TAB.ER.24H PO SCH ×2 (10:16→21:27)
[2021-05-13] MEDS: Lactobacillus 1 EACH CAP.SPRINK PO SCH (10:16)
[2021-05-13] MEDS: cefTRIAXone 1,000 MG in 0.9 % Sodium Chloride Mini Bag 100 ML IVPB SCH (10:16)
[2021-05-13] MEDS: Acetaminophen 325 MG TABLET PO PRN (12:27)
[2021-05-13 12:34] LABS: Basophils % 0.2 %; Eosinophils % 0.3 %; Hematocrit 26.7 % (35.3-44.9); Hemoglobin 8.6 g/dL (11.5-15.4); Immature Granulocytes % 0.6 % (0-4); Lymphocytes # 0.8 K/mcL (0.6-4.6); Lymphocytes % 7.5 %; Mean Corpuscular HGB Conc 32.2 g/dL (31.6-35.5); Mean Corpuscular Hemoglobin 31.9 pg (28.0-33.3); Mean Corpuscular Volume 98.9 fL (83.0-100.0); Mean Platelet Volume 9.5 fL (9.4-12.4); Monocytes # 1.1 K/mcL (0.0-1.3); Platelet Count 198 K/mcL (140-400); Red Cell Distribution Width 14.5 % (11.5-14.5); Segmented Neutrophils % 81.4 %
[2021-05-13 12:44] LABS: Neutrophils # 8.9 K/mcL (1.6-8.9); White Blood Count 10.9 K/mcL (4.3-11.1)
[2021-05-13 12:49] LABS: Alanine Aminotransferase 5 Units/L (7-52); Albumin 3.2 g/dL (3.5-5.7); Albumin/Globulin Ratio 1.3 (1.1-2.2); Alkaline Phosphatase 45 Units/L (34-104); Aspartate Amino Transferase 9 Units/L (13-39); BUN/Creatinine Ratio 26 (6-26); Bilirubin,Total 0.5 mg/dL (0.3-1.0); Blood Urea Nitrogen 19 mg/dL (8-23); Calcium 9.8 mg/dL (8.6-10.3); Carbon Dioxide 20 mEq/L (23-29); Chloride 113 mEq/L (98-107); Globulin 2.5 g/dL (2.4-3.5); Glucose 174 mg/dL (70-105); Osmolality,Calculated 292 (280-300); Potassium 3.7 mEq/L (3.5-5.1); Sodium 138 mEq/L (136-145); Total Protein 5.7 g/dL (6.4-8.9); eGFR For African Americans > 60 (> 60); eGFR For Non-African Americans > 60 (> 60)
[2021-05-13] MEDS: ALPRAZolam 0.5 MG TABLET PO SCH (21:27)
[2021-05-14] MEDS: *HR* Enoxaparin 30 MG/0.3 ML SYRINGE SQ SCH (06:41)
[2021-05-14 07:53] LABS: Hematocrit 24.8 % (35.3-44.9); Hemoglobin 7.7 g/dL (11.5-15.4)
[2021-05-14 08:24] LABS: BUN/Creatinine Ratio 28 (6-26); Blood Urea Nitrogen 22 mg/dL (8-23); Calcium 10.2 mg/dL (8.6-10.3); Carbon Dioxide 20 mEq/L (23-29); Chloride 112 mEq/L (98-107); Glucose 96 mg/dL (70-105); Osmolality,Calculated 289 (280-300); Sodium 138 mEq/L (136-145); eGFR For African Americans > 60 (> 60); eGFR For Non-African Americans > 60 (> 60)
[2021-05-14] MEDS: cefTRIAXone 1,000 MG in 0.9 % Sodium Chloride Mini Bag 100 ML IVPB SCH (09:00)
[2021-05-14] MEDS: Metoprolol XL (24 HR) Succ 50 MG TAB.ER.24H PO SCH ×2 (09:01→20:43)
[2021-05-14] MEDS: Cholecalciferol (D-3) 1,000 UNIT (25MCG) TABLET PO SCH (09:01)
[2021-05-14] MEDS: Lactobacillus 1 EACH CAP.SPRINK PO SCH (09:01)
[2021-05-14] MEDS: Acetaminophen 325 MG TABLET PO PRN (10:35)
[2021-05-14] MEDS: ALPRAZolam 0.5 MG TABLET PO SCH (20:43)
[2021-05-15 04:36] LABS: Hematocrit 25.6 % (35.3-44.9); Hemoglobin 8.1 g/dL (11.5-15.4)
[2021-05-15 04:53] LABS: BUN/Creatinine Ratio 32 (6-26); Blood Urea Nitrogen 24 mg/dL (8-23); Calcium 9.9 mg/dL (8.6-10.3); Carbon Dioxide 20 mEq/L (23-29); Chloride 113 mEq/L (98-107); Glucose 115 mg/dL (70-105); Osmolality,Calculated 293 (280-300); Potassium 4.1 mEq/L (3.5-5.1); Sodium 139 mEq/L (136-145); eGFR For African Americans > 60 (> 60); eGFR For Non-African Americans > 60 (> 60)
[2021-05-15] MEDS: *HR* Enoxaparin 30 MG/0.3 ML SYRINGE SQ SCH (05:34)
[2021-05-15] MEDS: cefTRIAXone 1,000 MG in 0.9 % Sodium Chloride Mini Bag 100 ML IVPB SCH (08:25)
[2021-05-15] MEDS: Cholecalciferol (D-3) 1,000 UNIT (25MCG) TABLET PO SCH (08:25)
[2021-05-15] MEDS: Metoprolol XL (24 HR) Succ 50 MG TAB.ER.24H PO SCH (08:25)
[2021-05-15] MEDS: Lactobacillus 1 EACH CAP.SPRINK PO SCH (08:25)
[2021-05-15 12:35] LABS: Adenovirus Not Detected (Not Detect); Bordetella Pertussis Not Detected (Not Detect); Chlamydophila pneumoniae Not Detected (Not Detect); Coronavirus 229E Not Detected (Not Detect); Coronavirus HKU1 Not Detected (Not Detect); Coronavirus NL63 Not Detected (Not Detect); Coronavirus OC43 Not Detected (Not Detect); Human Metapneumovirus Not Detected (Not Detect); Human Rhinovirus/Enterovirus Not Detected (Not Detect); Influenza A Subtype 2009 H1 Not Detected (Not Detect); Influenza B Not Detected (Not Detect); Mycoplasma pneumoniae Not Detected (Not Detect); Parainfluenza Virus 1 Not Detected (Not Detect); Parainfluenza Virus 2 Not Detected (Not Detect); Parainfluenza Virus 3 Not Detected (Not Detect); Parainfluenza Virus 4 Not Detected (Not Detect); Respiratory Syncytial Virus Not Detected (Not Detect); SARS-CoV-2 Not Detected (Not Detect)
[2021-05-15] MEDS ORDERED: FLU Vac QV 21-22 (6Month+)/PF 0.5 ML SYRINGE IM ONE (14:09)
[2021-05-15 16:34] VITALS: BP 143/83; PULSE 74; TEMP 98.3; O2SAT 95
== END 2021-05-15 16:56 | DRG 563 ==
LOC: EMEROOARM 11:01 → 4WAOSI 11:01 → SUATTDRO 16:11 → 4WAOSI 17:19 → SUATTDRO 05-14 17:27
PROVIDERS: ADMIT Internal Medicine; ATTEND Internal Medicine